=== PATIENT | female | born 1945 | race Caucasian/White ===

== ENCOUNTER 2025-02-02 17:35 | Emergency (ER) | payer MEDICARE, BC ==
[2025-02-02] MEDS ORDERED: Sodium Chloride 0.9% 10 ML Syringe FLUSH PRN (17:46)
[2025-02-02 18:20] LABS: MEAN PLATELET VOLUME 7.9 fL (7.1-12.4); PLATELET COUNT,PLT 218 x10(3)uL (151-488); RED BLOOD CELL COUNT 3.90 x10(6)uL (3.60-5.20); RED CELL DISTRIBUTION WIDTH 13.3 % (12.3-16.5); WHITE BLOOD CELL COUNT,WBC 14.6 x10-3/uL (3.0-10.3)
[2025-02-02 18:26] LABS: BLOOD UREA NITROGEN,BUN 21 mg/dL (7-18); CARBON DIOXIDE,CO2 29 mmol/L (21-32); CHLORIDE,CL 99 mmol/L (100-110); CREATININE 0.9 mg/dL (0.55-1.02); ESTIMATED GFR 66 mL/min (>60); GLUCOSE RANDOM 124 mg/dL (80-116); POTASSIUM,K 4.1 mmol/L (3.5-5.3); SODIUM,NA 134 mmol/L (135-145)
[2025-02-02 18:32] LABS: A/G RATIO 0.7; ALANINE AMINOTRANSFERASE,ALT 53 U/L (12-36); ASPARTATE AMNIOTRANSFERASE,AST 49 IU/L (5-25); BILIRUBIN TOTAL 0.7 mg/dL (0.1-1.3); PROTEIN TOTAL,TP 6.9 g/dL (6.0-8.0)
[2025-02-02 18:35] LABS: LYMPHOCYTES PERCENT MAN 4 % (13-37); MONOCYTES PERCENT MAN 4 % (4-12); SEG NEUTROPHILS PERCENT MAN 92 % (46-82)
[2025-02-02 18:37] LABS: LACTIC ACID 0.5 mmol/L (0.4-2.0)
[2025-02-02 18:41] LABS: INR 1.03 (1.00-1.24); PTT,PARTIAL THROMBOPLSTIN TIME 28.7 SECONDS (24.4-33.2)
[2025-02-02 19:45] LABS: GLUCOSE,URINE NORMAL (NORMAL); OCCULT BLOOD,URINE LARGE (NEGATIVE)
[2025-02-02 19:52] LABS: APPEARANCE,URINE SLIGHTLY CLOUDY (CLEAR)
[2025-02-02 19:53] LABS: SQUAMOUS EPITHELIAL CELLS,UR OCCASIONAL (NS,R,O)
== END 2025-02-02 20:37 | disposition home or self-care (01) ==
LOC: FB.ED 17:35
DX: E86.0 Dehydration (principal); N39.0 Urinary tract infection, site not specified; Z79.899 Other long term (current) drug therapy
CPT/HCPCS: 36415; 70450; 71045; 80053; 81001; 82947; 83605; 84484; 85025; 85610; 85730; 93005; 93010; 96360; 99284; 99285; A9270; J7030; J0696